=== PATIENT | male | born 1990 | race Two or more races ===

== ENCOUNTER 2018-07-23 10:09 | Emergency (ER) | payer BC, OTHER ==
[2018-07-23] MEDS ORDERED: Metoclopramide 10 MG/2 ML SDV IVPUSH ONE (10:33)
[2018-07-23] MEDS ORDERED: HYDROmorphone 1 MG/ML Syringe IVPUSH ONE (10:33)
--- NOTE | 2018-07-23 10:38 | EDM.PDOC ---
ED HPI GENERAL MEDICAL PROBLEM - General Chief Complaint: Back Pain or Injury Stated Complaint: BACK PAIN Time Seen by Provider: 07/23/18 10:32 Source of Information: Reports: Patient History Limitations: Reports: No Limitations - History of Present Illness INITIAL COMMENTS - FREE TEXT/NARRATIVE: 28-year-old male presents to the ED for evaluation of severe left flank pain. He states that about 3 and half days ago I Sunday night which was july 19 he slipped while walking down a set of concrete stairs and landed very hard on his left flank area. He states initially he didn't think he was hurt too bad. He did not the wind out of him initially. However today he coughed and felt something move in the left lower back and just about putting him to the ground. He cannot take a deep breath at all. He denies feeling lightheaded dizzy. States she's been able to eat and drink normally. Onset: Sudden Onset Date: 07/19/18 Onset Time: 22:30 Duration: Day(s):, Constant, Getting Worse Location: Reports: Abdomen, Back (Left posterior lateral lower ribs 8, 9 and 10. ) Quality: Reports: Ache (Left upper quadrant of the abdomen as well.), Other Severity: Severe (Pain with deep breathing or movement.) Improves with: Reports: Rest ( 8-9 out of 10) Worsens with: Reports: Other, Movement Context: Reports: Trauma (Slipped and fell while walking down concrete stairs 3 and half days ago.). Denies: Activity (Deep breathing and coughing really her bad today.), Exercise, Lifting, Sick Contact Associated Symptoms: Reports: No Other Symptoms. 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 Left Middle Back Pain Score (Numeric/FACES): 9 - Related Data Allergies Allergy/AdvReac Type Severity Reaction Status Date / Time No Known Allergies Allergy Verified 07/23/18 10:28 Home Meds: Home Meds Diclofenac Sodium [Voltaren] 50 mg PO TID #24 tab.ec 07/23/18 [Rx] oxyCODONE HCl/Acetaminophen [Percocet 5-325 mg Tablet] 1 - 2 each PO Q4H PRN # 20 tablet 07/23/18 [Rx] Social & Family History - Living Situation & Occupation Occupation: Employed ED ROS GENERAL - Review of Systems Review Of Systems: See Below Constitutional: Reports: No Symptoms HEENT: Reports: No Symptoms Respiratory: Reports: Shortness of Breath, Cough (Can't take a deep breath because it makes the pain in his left flank much worse. Occasional nonproductive cough.) Cardiovascular: Reports: No Symptoms Endocrine: Reports: No Symptoms GI/Abdominal: Reports: Abdominal Pain (Left upper quadrant abdominal pain) : Reports: Other Musculoskeletal: Reports: Back Pain Skin: Reports: No Symptoms (Pain in the left flank ribs 89 and 10.) Neurological: Reports: No Symptoms Psychiatric: Reports: No Symptoms ED EXAM, UPPER BACK/NECK PAIN - Physical Exam Exam: See Below Exam Limited By: No Limitations General Appearance: Alert, Moderate Distress (Patient can't talk more than 3 or 4 words in a time due to severity of the pain in his left flank and upper abdomen.) Eye Exam: Bilateral Eye: Normal Inspection, PERRL Cardiovascular/Respiratory: Regular Rate, Rhythm, Normal Peripheral Pulses, No JVD, Other (Patient is splinting respirations and I can barely hear any air to the left lower lobe due to splinting.). No: Normal Breath Sounds GI/Abdominal: Guarding, Rigid (Guarding with rigidity left upper quadrant of the abdomen on exam.), Abnormal Bowel Sounds (Bowel sounds are few and far between.), Other (2 tender to palpate any organomegaly.) Back Exam: Other (There is slight swelling in the paraspinal musculature over the left flank.) Extremities: Normal Inspection ( Marked tenderness on palpation of ribs 89 and 10 posterior laterally. No abrasions or contusions appreciated), Normal Range of Motion, Non-Tender, No Pedal Edema Neurologic: No Motor/Sensory Deficits, Alert, Normal Mood/Affect, Oriented x 3 Psychiatric: Anxious Skin Exam: Normal Color, Warm/Dry Lymphatic: No Adenopathy Course - Vital Signs Last Recorded V/S: Last Vital Signs Temp 36.5 C 07/23/18 12:05 Pulse 81 07/23/18 12:05 Resp 18 07/23/18 12:05 BP 123/80 07/23/18 12:05 Pulse Ox 98 07/23/18 12:05 - Orders/Labs/Meds Labs: Laboratory Tests 07/23/18 07/23/18 Range/Units 10:51 10:51 WBC 9.68 H (4.23-9.07) K/mm3 RBC 5.26 (4.63-6.08) M/mm3 Hgb 16.9 (13.7-17.5) gm/L Hct 48.9 (40.1-51.0) % MCV 93.0 H (79.0-92.2) fl MCH 32.1 (25.7-32.2) pg MCHC 34.6 (32.2-35.5) g/dl RDW Std Deviation 41.8 (35.1-43.9) fL Plt Count 203 (163-337) K/mm3 MPV 10.0 (9.4-12.3) fl Neutrophils % (Manual) 73 H (40-60) % Band Neutrophils % 0 (0-10) % Lymphocytes % (Manual) 15 L (20-40) % Atypical Lymphs % 0 % Monocytes % (Manual) 11 H (2-10) % Eosinophils % (Manual) 1 (0.8-7.0) % Basophils % (Manual) 0 L (0.2-1.2) Platelet Estimate Adequate RBC Morph Comment Normal Sodium 139 (136-145) mEq/L Potassium 4.2 (3.5-5.1) mEq/L Chloride 102 (98-107) mEq/L Carbon Dioxide 31 (21-32) mEq/L Anion Gap 10.2 (5-15) BUN 17 (7-18) mg/dL Creatinine 0.8 (0.7-1.3) mg/dL Est Cr Clr Drug Dosing 120.65 mL/min Estimated GFR (MDRD) > 60 (>60) mL/min BUN/Creatinine Ratio 21.3 H (14-18) Glucose 97 (74-106) mg/dL Calcium 9.6 (8.5-10.1) mg/dL Total Bilirubin 0.6 (0.2-1.0) mg/dL AST 50 H (15-37) U/L ALT 46 (16-63) U/L Alkaline Phosphatase 74 (46-116) U/L Total Protein 8.1 (6.4-8.2) g/dl Albumin 4.1 (3.4-5.0) g/dl Globulin 4.0 gm/dL Albumin/Globulin Ratio 1.0 (1-2) Lipase 111 (73-393) U/L Meds: Medications Discontinued Medications Generic Name Dose Route Start Last Admin Trade Name Kevyn PRN Reason Stop Dose Admin Hydromorphone HCl 1 mg 07/23/18 10:33 07/23/18 10:47 Dilaudid IVPUSH 07/23/18 10:34 1 mg ONETIME ONE Administration Sodium Chloride 1,000 mls @ 150 mls/hr 07/23/18 10:45 07/23/18 10:40 Normal Saline IV 150 mls/hr ASDIRECTED SEE Administration Iohexol 75 ml 07/23/18 10:41 07/23/18 11:11 Omnipaque IVPUSH 07/23/18 10:42 75 ml ONETIME ONE Administration Metoclopramide HCl 5 mg 07/23/18 10:33 07/23/18 10:40 Reglan IVPUSH 07/23/18 10:34 5 mg ONETIME ONE Administration Sodium Chloride 10 ml 07/23/18 10:41 07/23/18 11:11 Saline Flush FLUSH 10 ml ONETIME PRN Administration IV FLUSH - Radiology Interpretation Free Text/Narrative:: 28-year-old male [place] descent presents to the ED with acute injury to his left flank when he slipped and fell down a set of concrete stairs 3-1/2 nights ago. States initially he didn't think is her too bad. Pain worsened over the last 2 days. Today or this morning he coughed and cause severe pain with something clicking or catching in his left flank. This nearly put him down to the floor. Examination reveals marked tenderness over ribs 89 and 10 posterior laterally on the left side. There is no pain in the midline of the thoracic spine. However he is also extremely tender with guarding and rigidity left upper quadrant of the abdomen worrisome for kidney or splenic injury. Patient will have an IV started at normal saline at 150 mils per hour. Routine labs will be performed including a serum lipase and CBC and CMP. He will have CT chest abdomen pelvis performed with IV contrast only to rule out splenic injury. Clinically he has at least one fractured rib. At present he is unable to laid down. Will give be given Dilaudid 1 mg IV with Reglan 5 mg IV for pain and nausea relief. - Re-Assessments/Exams Free Text/Narrative Re-Assessment/Exam: 07/23/18 11:37 CT scan of the chest abdomen and pelvis has been completed with IV contrast. Chest shows normal lung burt. No pulmonary contusions no pneumothorax. Heart is within normal limits. Small hiatal hernia noted. No fractures are identified in any of the left-sided ribs or spinous processes of the thoracic or lumbar spine. ET of the abdomen shows a normal homogeneous appearance to the liver gallbladder shows no calcified gallstones. Pancreas appears normal stomach is full of food. Spleen is normal with no extravasation of contrast. Both kidneys are normal with no extra patient extravasation of contrast ureters fill appropriately down to the urinary bladder. Moderate amount of stool throughout the colon appreciated. No free air identified no fluid in the pelvis. Essentially normal CT chest abdomen and pelvis. Pain therefore appears to be soft tissue or in origin with contusion to the ribs in the left flank worse today due to accumulation of blood in the soft tissues. She 'll be given the rest of the week off of work. Be placed on Voltaren 50 mg 3 times daily for the next 8 days and Percocet tabs 5/3/25 milligrams one or 2 every 4-6 hours needed for pain relief 16 tablets. Departure - Departure Time of Disposition: 12:05 Disposition: Home, Self-Care 01 Condition: Fair Clinical Impression: Contusion of left back wall of thorax Qualifiers: Encounter type: initial encounter Qualified Code(s): S20.222A - Contusion of left back wall of thorax, initial encounter - Discharge Information *PRESCRIPTION DRUG MONITORING PROGRAM REVIEWED*: Not Applicable *COPY OF PRESCRIPTION DRUG MONITORING REPORT IN PATIENT JAMES: Not Applicable Prescriptions: Diclofenac Sodium [Voltaren] 50 mg PO TID #24 tab.ec oxyCODONE HCl/Acetaminophen [Percocet 5-325 mg Tablet] 1 - 2 each PO Q4H PRN # 20 tablet PRN Reason: pain relief. Instructions: Contusion Referrals: PCP,None [Primary Care Provider] - Forms: ED Department Discharge, ED Return to Work/School Form Additional Instructions: Evaluation the emergency room today in regards to blunt trauma to the left posterior lower ribs that occurred from a slip and fall down concrete stairs 3 and half days ago. Pain was acutely exacerbated by coughing this morning. Examination shows slight swelling over the eighth ninth and 10th ribs posteriorly laterally on the left side. Good air entry to both lung burt. Very tender on palpation left upper quadrant of the abdomen. Therefore CT of your chest abdomen pelvis was performed to make sure there were no injuries to the spleen or kidney which led up underneath those ribs. CT reveals no broken ribs and no contusion or injury to the underlying lung. Also the kidneys liver spleen are all within normal limits as well. Injuries are therefore soft tissue many muscles and ligaments surrounding the ribs. It's quite often the pain is much worse 2-3 days after a fall when you anterior ribs. Blood accumulates in the muscles between the ribs making it difficult to take a deep breath or to cough. This will take on average 10-14 days to heal versus broken ribs which take about 6 weeks. Treatment is time to heal. Suggest use of Voltaren 50 mg 3 times daily with food to take away pain and inflammation. Pain pills Percocet 5/ 325 mg one or 2 tablets every 4-6 hours as needed for pain relief. You cannot operate a motor vehicle or machinery while taking stronger pain pills. Also they like to cause constipation. Suggest use of MiraLAX 17 g or 1 packet daily for the next 7-10 days to prevent severe constipation from occurring. May return to work if alternative light duties are available for the next week. He will not be able to lift, carry, push or pull objects for at least a week. Deep breathing will hurt. Ht will gradually get better.
[2018-07-23] MEDS ORDERED: Iohexol 350 MG/ML 75 ML Bottle IVPUSH ONE (10:41)
[2018-07-23] MEDS ORDERED: Sodium Chloride 0.9% 1,000 ML IV SCH (10:45)
[2018-07-23] MEDS: Sodium Chloride 0.9% 10 ML Syringe FLUSH PRN ×2 (10:47→11:11)
--- NOTE | 2018-07-23 11:48 | CT ---
CT chest Technique: Multiple axial sections were obtained from above the lung apices inferiorly through the lung bases. Intravenous contrast was utilized. Comparison: No previous chest imaging. Findings: Mediastinum and hilar regions appear unremarkable. Aorta shows normal enhancement. No pericardial effusion is seen. No axillary adenopathy is noted. Lungs are clear. No acute parenchymal densities seen within the lungs. No pleural effusions or pneumothorax is seen. Bone window settings were reviewed which show no discrete rib abnormality. Vertebral body heights are maintained within the thoracic spine. Lateral view of the sternum appears intact. Impression: 1. Nothing acute is appreciated on CT study of the chest. Diagnostic code #1 CT abdomen and pelvis Technique: Multiple axial sections were obtained from above the dome of the diaphragm inferiorly through the pubic symphysis. Intravenous contrast was utilized. No oral contrast has been given. Findings: Liver shows no discrete abnormality. Spleen appears within normal limits. Adrenal glands contain no nodule. Pancreas is within normal limits. Gallbladder contains no calcified gallstones. Kidneys show symmetric contrast enhancement without hydronephrosis or mass. Aorta shows no aneurysm. No retroperitoneal adenopathy or mesenteric abnormalities are seen. Appendix is seen which is normal in size. No pelvic abnormality is seen. No free fluid or inflammatory change is seen within the abdomen or within the pelvis. Bone window settings were reviewed which show no acute osseous abnormality. Impression: 1. Nothing acute is appreciated on CT study of the abdomen and pelvis. Diagnostic code #1
== END 2018-07-23 12:10 | disposition home or self-care (01) ==
LOC: JD.ED 10:09
DX: S20.222A Contusion of left back wall of thorax, initial encounter (principal); W10.8XXA Fall (on) (from) other stairs and steps, initial encounter
CPT/HCPCS: 36415; 71260; 74177; 80053; 83690; 85007; 85027; 96361; 96374; 96375; 99284; J1170; J2765; J7040; Q9967